=== PATIENT | female | born 1935 | race Two or more races ===

== ENCOUNTER 2020-07-22 14:24 | Outpatient (CLI) | payer OTHER | END 2020-07-22 14:33 | disposition home or self-care (01) | LOC: MRI 14:24 | DX: S83.242A Other tear of medial meniscus, current injury, left knee, initial encounter (principal); M71.22 Synovial cyst of popliteal space [Baker], left knee; M25.462 Effusion, left knee; M25.562 Pain in left knee | CPT/HCPCS: 73721 ==

== ENCOUNTER 2020-11-09 16:23 | Outpatient (CLI) | payer OTHER | END 2020-11-09 16:33 | disposition home or self-care (01) | LOC: MRI 16:23 | PROVIDERS: ATTEND Internal Medicine | DX: M54.07 Panniculitis affecting regions of neck and back, lumbosacral region (principal) | CPT/HCPCS: 72148 ==

== ENCOUNTER 2022-06-16 14:17 | Emergency (ER) | payer OTHER ==
[~2022-06-16] VITALS: Ht 157.5 cm; Wt 63.5 kg
[2022-06-16] MEDS ORDERED: ELIQUIS5 MG PO (14:45)
[2022-06-16] MEDS ORDERED: SYNTHROID88 MCG PO (14:45)
[2022-06-16] MEDS ORDERED: METOPROLOL SUCC50 MG PO (14:45)
[2022-06-16] MEDS ORDERED: ATORVASTATIN CA10 MG PO (14:45)
[2022-06-16] MEDS ORDERED: SERTRALINE HCL100 MG PO (14:46)
[2022-06-16] MEDS ORDERED: ZOLPIDEM TARTRA10 MG PO (14:46)
[2022-06-16] MEDS ORDERED: GABAPENTIN300 M2 PO (14:46)
[2022-06-16] MEDS ORDERED: DILTIAZEM HCL120 M1 PO (14:46)
== END 2022-06-16 17:36 | disposition home or self-care (01) ==
LOC: EMR PED 14:17 → ER 14:29
DX: S01.82XA Laceration with foreign body of other part of head, initial encounter (principal); W18.31XA Fall on same level due to stepping on an object, initial encounter; Y93.9 Activity, unspecified; Y92.413 State road as the place of occurrence of the external cause; I49.9 Cardiac arrhythmia, unspecified; I10 Essential (primary) hypertension

== ENCOUNTER → 2022-06-22 | Outpatient (CLI) | payer OTHER ==
[~2022-06-22] MED LIST: ATORVASTATIN CA10 MG PO; DILTIAZEM HCL120 M1 PO; ELIQUIS5 MG PO; GABAPENTIN300 M2 PO; METOPROLOL SUCC50 MG PO; SERTRALINE HCL100 MG PO; SYNTHROID88 MCG PO; ZOLPIDEM TARTRA10 MG PO
== END | disposition home or self-care (01) ==
LOC: WOUND MED 10:45
PROVIDERS: ATTEND Surgery
DX: S89.91XA Unspecified injury of right lower leg, initial encounter (principal); L97.912 Non-pressure chronic ulcer of unspecified part of right lower leg with fat layer exposed; I10 Essential (primary) hypertension; R23.8 Other skin changes; Z86.73 Personal history of transient ischemic attack (TIA), and cerebral infarction without residual deficits
CPT/HCPCS: A4927; A6223; A6251; G0463

== ENCOUNTER 2022-06-24 11:31 | Outpatient (CLI) | payer OTHER | END 2022-06-24 11:35 | disposition home or self-care (01) | LOC: WOUND MED 11:31 | PROVIDERS: ATTEND Surgery | DX: L97.822 Non-pressure chronic ulcer of other part of left lower leg with fat layer exposed (principal) | CPT/HCPCS: 97602; A4927; A6219; A6223 ==

== ENCOUNTER 2022-07-06 13:35 | Outpatient (CLI) | payer OTHER | END 2022-07-06 13:52 | disposition home or self-care (01) | LOC: MRI 13:35 | DX: M47.814 Spondylosis without myelopathy or radiculopathy, thoracic region (principal); M54.6 Pain in thoracic spine; S22.000A Wedge compression fracture of unspecified thoracic vertebra, initial encounter for closed fracture | CPT/HCPCS: 72146 ==

== ENCOUNTER 2022-09-17 05:38 | Inpatient (IN) | payer OTHER ==
[~2022-09-17] VITALS: Ht 157.5 cm; Wt 62.6 kg
--- NOTE | 2022-09-17 06:14 | NUR ---
SE RECIBE PTE FEMENINA ALERTA Y ORIENTADA EN LAS AMBROSE ESFERAS EN AMBULANCIA EN COMPANIA DE FAMILIAR QUIEN REFIERE DIFICULTAD RESPIRATORIA DESDE HOY EN LA MADRUGADA. SE OBSERVA PTE CON CELULLITIS EN PIERNA L+, CON PRESENCIA DE EDEMA Y ERITEMA. SE PRESENTA A HANNA A MD FAM.
--- NOTE | 2022-09-17 06:17 | NUR ---
PTE FEMENINA ALERTA Y ORIENTADA X3 EN COMPANIA DE FAMILIAR ES EVALUADA POR . SE UBICA EN K8, SE CONECTA A MONITOR CARDIACO Y OXIMETRIA DE PULSO CONTINUA. SE ORIENTA A PTE Y FAMILIAR SOBRE ORDENES DE TX REFIEREN COMPRENDER. SE COLECTAN MUESTRAS DE LABORATORIOS Y SE CANALIZA VENA BAJO MEDIDAS ASEPTICAS. SE ADMINISTRAN MEDICAMENTOS, BAJO MEDIDAS ASEPTICAS. SE NOTIFICAN ABGS, TERAPIAS Y RSV A PERSONAL DE TERAPIA. SE NOTIFICA A RADIOLOGIA PARA XRAY PORTABLE. SE INSERTA SONDA URINARIA A GRAVEDAD DRENANDO EGRESO DE ORINA COLOR AMARILLO MARTIN, CON APROXIMADAMENTE 50ML. SE TRINIDAD PTE EN FELIX NIVEL MAS BAJO CON BARANDAS ELEVADAS Y FRENOS COLOCADOS POR SEGURIDAD.
--- NOTE | 2022-09-17 06:36 | NUR ---
SE TRATA DE REALIZAR EKG Y POR TEMBLORES DE LA PACIENTE NO SE PUEDE REALIZAR. SE ENTREGA PENDIENTE A TURNO ENTRANTE.
--- NOTE | 2022-09-17 08:03 | NUR ---
SE RECIBE PTE DEL TURNO ANTERIOR, ALERTA Y ORIENTADA EN KATHERINE AMBROSE ESFERAS, UBICADA EN CAMA, NIVEL MAS BAJO, PONCE DE IDENTIFICACION Y BARANDAS ELEVADAS POR PRECAUCION, EN COMPANIA DE FAMILIAR. SE OBSERVA CON BUEN PATRON RESPIRATORIO, SATURANDO 96%, CON CANULA NASAL A 3L/MIN. PIEL TIBIA AL TACTO, SE OBSERVA EDEMA BILATERAL EN AMBAS EXTREMIDADES INFERIORES Y ERITEMA EN EXTREMIDAD INFERIOR LT. I/V'S PATENTES Y LIBRES DE EDEMA O ERITEMA RECIBIENDO R/L @85 ML/HR. SIGALA PATENTE CON FECHA DE 09/17/22 #16 CON EGRESO APROXIMADO DE 100ML COLOR AMARILLO. SE MANTIENE CONECTADA A MONITOR CARDIACO Y OXIMETRIA DE PULSO. SE MANTIENE BAJO OBSERVACION.
[2022-10-05] MEDS ORDERED: IPRATROPIU0.2 MG/1 M IH (16:08)
[2022-10-05] MEDS ORDERED: AMIODARONE HCL200 MG PO (16:09)
[2022-10-05] MEDS ORDERED: ELIQUIS5 MG PO (16:09)
[2022-10-05] MEDS ORDERED: DILTIAZEM HCL120 MG PO (16:10)
[2022-10-05] MEDS ORDERED: LEVOTHYROXINE88 MCG PO (16:11)
[2022-10-05] MEDS ORDERED: METOPROLOL TART50 MG PO (16:11)
[2022-10-05] MEDS ORDERED: GABAPENTIN300 MG PO (16:11)
[2022-10-05] MEDS ORDERED: LIPITOR20 MG PO (16:12)
== END 2022-10-05 17:36 | DRG 193 ==
LOC: ER 05:38 → MEDI 19:17 → ICU 09-20 21:45 → MEDI 09-25 13:14
PROVIDERS: ADMIT Internal Medicine; ATTEND Internal Medicine
PROC: 4A12X4Z Monitoring of Cardiac Electrical Activity, External Approach (ICD-10-PCS; principal; 2022-09-17)
PROC: B24BYZZ Ultrasonography of Heart with Aorta using Other Contrast (ICD-10-PCS; 2022-09-17)
PROC: 3E0F73Z Introduction of Anti-inflammatory into Respiratory Tract, Via Natural or Artificial Opening (ICD-10-PCS; 2022-09-19)
PROC: B44HZZZ Ultrasonography of Bilateral Lower Extremity Arteries (ICD-10-PCS; 2022-09-19)
PROC: B54DZZZ Ultrasonography of Bilateral Lower Extremity Veins (ICD-10-PCS; 2022-09-19)
PROC: BW24ZZZ Computerized Tomography (CT Scan) of Chest and Abdomen (ICD-10-PCS; 2022-09-19)
PROC: 5A0945A Assistance with Respiratory Ventilation, 24-96 Consecutive Hours, High Flow/Velocity Cannula (ICD-10-PCS; 2022-09-20)
PROC: 02HV33Z Insertion of Infusion Device into Superior Vena Cava, Percutaneous Approach (ICD-10-PCS; 2022-09-21)
PROC: 3E0F7SF Introduction of Other Gas into Respiratory Tract, Via Natural or Artificial Opening (ICD-10-PCS; 2022-09-24)
DX: J12.1 Respiratory syncytial virus pneumonia (principal); I50.33 Acute on chronic diastolic (congestive) heart failure; J96.01 Acute respiratory failure with hypoxia; J91.8 Pleural effusion in other conditions classified elsewhere; I48.20 Chronic atrial fibrillation, unspecified; E86.0 Dehydration; I11.0 Hypertensive heart disease with heart failure; I27.20 Pulmonary hypertension, unspecified; I07.1 Rheumatic tricuspid insufficiency; R53.81 Other malaise; D72.0 Genetic anomalies of leukocytes; I95.9 Hypotension, unspecified; I73.9 Peripheral vascular disease, unspecified; E03.9 Hypothyroidism, unspecified; E78.5 Hyperlipidemia, unspecified; I69.323 Fluency disorder following cerebral infarction; I69.320 Aphasia following cerebral infarction; Z79.02 Long term (current) use of antithrombotics/antiplatelets

== ENCOUNTER 2022-10-19 19:20 | Inpatient (IN) | payer OTHER ==
[~2022-10-19] VITALS: Ht 162.6 cm; Wt 61.2 kg
[~2022-10-19 19:20] MED LIST changes: +AMIODARONE HCL200 MG PO; +DILTIAZEM HCL120 MG PO; +GABAPENTIN300 MG PO; +IPRATROPIU0.2 MG/1 M IH; +LEVOTHYROXINE88 MCG PO; +LIPITOR20 MG PO; +METOPROLOL TART50 MG PO
--- NOTE | 2022-10-19 19:51 | NUR ---
SE RECIBE PACIENTE DE AMBULANCIA ALERTA Y ORIENTADA ACOMPANADA DE FAMILIAR QUIEN REFIERE PRESENTA DIFICULTAD RESPIRATORIA Y EDEMA EN AMBAS EXTREMIDADES. SE MONITOREAN LOS SV Y SE REALIZA EKG Y SE PRESENTA A .
--- NOTE | 2022-10-19 21:18 | NUR ---
SE NOTIFCA A PERSONAL DE TERAPIA RESPIRATORIA ABGS Y TERAPIAS PENDIENTES A REALIZAR.
[2022-10-27] MEDS ORDERED: LEVOTHYROXINE88 MCG PO (15:29)
[2022-10-27] MEDS ORDERED: DILTIAZEM ER120 M2 PO (15:29)
[2022-10-27] MEDS ORDERED: FUROSEMIDE20 MG PO (15:29)
[2022-10-27] MEDS ORDERED: METOPROLOL TART50 MG PO (15:29)
[2022-10-27] MEDS ORDERED: CLONAZEPAM0.5 MG PO (15:29)
[2022-10-27] MEDS ORDERED: ELIQUIS5 MG PO (15:29)
[2022-10-27] MEDS ORDERED: BUDESONIDE0.5 MG/2 M IH (16:54)
[2022-10-27] MEDS ORDERED: IPRATROPIU0.2 MG/1 M IH (16:54)
[2022-10-27] MEDS ORDERED: XOPENEX0.63 MG/3 IH (17:22)
== END 2022-10-27 17:58 | disposition home or self-care (01) | DRG 291 ==
LOC: ER 19:20 → MEDJ 23:03 → MEDI 23:03 → MEDJ 23:40
PROVIDERS: ADMIT Internal Medicine; ATTEND Internal Medicine
PROC: BW24ZZZ Computerized Tomography (CT Scan) of Chest and Abdomen (ICD-10-PCS; 2022-10-19)
PROC: 4A12X4Z Monitoring of Cardiac Electrical Activity, External Approach (ICD-10-PCS; 2022-10-19)
PROC: B54DZZZ Ultrasonography of Bilateral Lower Extremity Veins (ICD-10-PCS; 2022-10-20)
PROC: B24BYZZ Ultrasonography of Heart with Aorta using Other Contrast (ICD-10-PCS; 2022-10-21)
PROC: BW241ZZ Computerized Tomography (CT Scan) of Chest and Abdomen using Low Osmolar Contrast (ICD-10-PCS; 2022-10-21)
PROC: 0W993ZZ Drainage of Right Pleural Cavity, Percutaneous Approach (ICD-10-PCS; principal; 2022-10-24)
PROC: 0W9B3ZZ Drainage of Left Pleural Cavity, Percutaneous Approach (ICD-10-PCS; 2022-10-25)
DX: I11.0 Hypertensive heart disease with heart failure (principal); I50.33 Acute on chronic diastolic (congestive) heart failure; J18.9 Pneumonia, unspecified organism; I48.20 Chronic atrial fibrillation, unspecified; J91.8 Pleural effusion in other conditions classified elsewhere; I27.21 Secondary pulmonary arterial hypertension; R09.02 Hypoxemia; G62.9 Polyneuropathy, unspecified; E03.9 Hypothyroidism, unspecified; R53.81 Other malaise; Z86.73 Personal history of transient ischemic attack (TIA), and cerebral infarction without residual deficits; Z79.01 Long term (current) use of anticoagulants; E87.6 Hypokalemia

== ENCOUNTER 2022-11-09 14:23 | Emergency (ER) | payer OTHER ==
[~2022-11-09] VITALS: Ht 157.5 cm; Wt 68.9 kg
[~2022-11-09 14:23] MED LIST changes: +BUDESONIDE0.5 MG/2 M IH; +CLONAZEPAM0.5 MG PO; +DILTIAZEM ER120 M2 PO; +FUROSEMIDE20 MG PO; +XOPENEX0.63 MG/3 IH
== END 2022-11-09 19:32 | disposition home or self-care (01) ==
LOC: ER 14:23
DX: J44.1 Chronic obstructive pulmonary disease with (acute) exacerbation (principal); M19.90 Unspecified osteoarthritis, unspecified site

== ENCOUNTER → 2022-11-14 | Emergency (ER) | payer OTHER ==
[~2022-11-14] VITALS: Ht 157.5 cm; Wt 68.9 kg
== END | disposition home or self-care (01) ==
LOC: ER 04:20
DX: M79.662 Pain in left lower leg (principal); M79.661 Pain in right lower leg; I48.91 Unspecified atrial fibrillation; E87.6 Hypokalemia; J90 Pleural effusion, not elsewhere classified

== ENCOUNTER → 2023-02-08 | Outpatient (CLI) | payer OTHER | END | disposition home or self-care (01) | LOC: RAD 15:16 | PROVIDERS: ATTEND Internal Medicine Pulmonary Disease | DX: I50.9 Heart failure, unspecified (principal); J43.2 Centrilobular emphysema; J94.9 Pleural condition, unspecified ==

== ENCOUNTER 2023-07-05 15:16 | Outpatient (CLI) | payer OTHER | END 2023-07-05 15:43 | disposition home or self-care (01) | LOC: RAD 15:16 | PROVIDERS: ATTEND Internal Medicine | DX: S84.02XA Injury of tibial nerve at lower leg level, left leg, initial encounter (principal); M54.59 Other low back pain; M25.551 Pain in right hip; M25.552 Pain in left hip; R10.2 Pelvic and perineal pain ==

== ENCOUNTER 2023-07-21 11:14 | Outpatient (CLI) | payer OTHER | END 2023-07-21 11:25 | disposition home or self-care (01) | LOC: MRI 11:14 | PROVIDERS: ATTEND Internal Medicine | DX: R22.42 Localized swelling, mass and lump, left lower limb (principal) | CPT/HCPCS: 73722 ==

== ENCOUNTER 2024-02-16 23:00 | Emergency (ER) | payer OTHER ==
[~2024-02-16] VITALS: Ht 157.5 cm; Wt 70.3 kg
[2024-02-17] MEDS ORDERED: ALBUTEROL SULFATE 3 ML/2.5 MG AMPUL.NEB IH ONE (00:30)
[2024-02-17 00:46] LABS: HEMATOCRIT 42.9 % (36.0-45.00); HEMOGLOBIN 14.5 g/dL (12.0-15.00); MEAN CORPUSCULAR HEMOGLOBIN 33.8 pg (27.00-32.0); MEAN CORPUSCULAR HGB CONC 33.8 g/dl (32.0-36.0); PLATELET COUNT 314 K/uL (150-450); RED BLOOD COUNT 4.29 M/uL (4.00-6.00); RED CELL DISTRIBUTION WIDTH 14.6 % (11.5-14.5)
[2024-02-17 00:59] LABS: BILIRUBIN TOTAL 0.38 mg/dL (0.3-1.2); CALCIUM 8.9 mg/dL (8.5-10.1); CREATININE SERUM 0.92 mg/dL (0.55-1.02); GFR 57.48; GLOBULINA 3.8 G/DL (2.4-3.5); POTASSIUM 3.57 mEq/L (3.5-5.1); TOTAL PROTEIN 6.8 gm/dL (6.4-8.2)
[2024-02-17] MEDS ORDERED: IPRATROPIUM/ALBUTEROL SULFATE 3 ML AMPUL.NEB IH SCH (01:00)
[2024-02-17 03:42] LABS: ABG PH 7.475 (7.35-7.45); ABG PO2 65.5 mmHg (80-100); ABG pCO2 36.6 mmHg (35-45); BASE EXCESS 2.9 mmol/l; BICARBONATE 26.3 mmol/l (23-25); SaO2 94.2 %; Tco2 27.5 mmol/l
[2024-02-17 03:43] LABS: allen test SATISFACTORY; o2 21 %; puncture site RADIAL RIGHT
== END 2024-02-17 04:51 | disposition home or self-care (01) ==
LOC: ER 23:00
PROVIDERS: Emergency Medicine
DX: J44.9 Chronic obstructive pulmonary disease, unspecified (principal); I50.9 Heart failure, unspecified; R00.0 Tachycardia, unspecified